=== PATIENT | male | born 1975 | race Caucasian/White ===

== ENCOUNTER 2022-10-01 17:14 | Emergency (ER) | payer OTHER ==
[2022-10-01] MEDS ORDERED: BABY ASPIRIN 81 MG CHEW PO ONE (17:21)
--- NOTE | 2022-10-01 17:21 | ERPHSYRPT ---
- History of Present Illness Time Seen by Provider: 10/01/22 17:20 Historian: patient Exam Limitations: no limitations Physician History: 46-year-old white male patient has a history of hypothyroidism and was driving through town when there was sudden onset of sharp shooting central substernal pain with radiation of the pain down his left arm with associated numbness. He is never had this type of symptom before. He describes the pain as "like placing your tongue on a battery". Generally, he states that he does not feel well. He has no documented coronary artery disease. He has never had this feeling before. He is a former smoker of cigarettes. Timing/Duration: today Quality: sharpness Location: substernal, central Chest Pain Radiation: arm (Left arm) Severity of Pain-Max: mild (To moderate) Severity of Pain-Current: mild Associated Symptoms: denies symptoms Prior Chest Pain/Cardiac Workup: no prior chest pain Nitro Today/Relief: no nitro taken today Aspirin Treatment Today: 81 mg x 4, provided by ED Allergies/Adverse Reactions: Iodinated Contrast Media Allergy (Verified 10/01/22 17:43) Home Medications: Levothyroxine Sodium 100 Mcg [Synthroid 100 Mcg] 100 mcg PO DAILY 10/01/22 [History] Testosterone 100 mg IL UD 10/01/22 [History] Travel Risk - International Travel Have you traveled outside of the country in past 3 weeks: No - Coronavirus Screening Are you exhibiting any of the following symptoms?: No Close contact with a COVID-19 positive Pt in past 14-21 Days: No - Review of Systems Constitutional: No Symptoms Eyes: No Symptoms Ears, Nose, & Throat: No Symptoms Respiratory: No Symptoms Cardiac: Chest Pain Abdominal/Gastrointestinal: No Symptoms Genitourinary Symptoms: No Symptoms Musculoskeletal: No Symptoms Skin: No Symptoms Neurological: No Symptoms Psychological: No Symptoms Endocrine: No Symptoms Hematologic/Lymphatic: No Symptoms Immunological/Allergic: No Symptoms All Other Systems: Reviewed and Negative - Past Medical History Pertinent Past Medical History: Yes - Past Surgical History Past Surgical History: Yes - Nursing Vital Signs Nursing Vital Signs: Initial Vital Signs Temperature 97.9 F 10/01/22 17:23 Pulse Rate 73 10/01/22 17:23 Respiratory Rate 12 10/01/22 17:23 Blood Pressure 151/102 10/01/22 17:23 O2 Sat by Pulse Oximetry 95 10/01/22 17:23 Pain Scale Pain Intensity 0 - Physical Exam General Appearance: no apparent distress, alert, anxiety Eye Exam: PERRL/EOMI, eyes nml inspection Ears, Nose, Throat Exam: normal ENT inspection, moist mucous membranes Neck Exam: normal inspection, non-tender, supple, full range of motion Respiratory Exam: normal breath sounds, chest tenderness, lungs clear, airway intact, No respiratory distress Cardiovascular Exam: regular rate/rhythm, normal heart sounds, normal peripheral pulses Gastrointestinal/Abdomen Exam: soft, normal bowel sounds, No tenderness Rectal Exam: not done Back Exam: normal inspection, normal range of motion, No CVA tenderness, No vertebral tenderness Extremity Exam: normal inspection, normal range of motion, pelvis stable Neurologic Exam: alert, oriented x 3, cooperative, steward/stewardess banquet II-XII nml as tested, normal mood/affect, nml cerebellar function, nml station & gait, sensation nml Skin Exam: normal color, warm, dry Lymphatic Exam: No adenopathy SpO2 Interpretation: normal - Course Nursing assessment & vital signs reviewed: Yes EKG Interpreted by Me: RATE (65), Sinus Rhythm, Left [place] Deviation (Borderline), NORMAL INTERVALS, NORMAL QRS, NORMAL ST-T, Other (No acute ischemic changes on today's twelve-lead EKG. No comparison twelve-lead EKG available.) Ordered Tests: Active Orders 24 hr Category Date Time Status Accredited Farm Manager STAT Care 10/01/22 17:21 Active EKG-ER Only STAT Care 10/01/22 17:21 Active IV Insertion STAT Care 10/01/22 17:21 Active Pulse Oximetry (ED) STAT Care 10/01/22 17:21 Active CHEST 1 VIEW (PORTABLE) Stat Exams 10/01/22 17:21 Taken CBC W DIFF Stat Lab 10/01/22 17:30 Completed CMP Stat Lab 10/01/22 17:30 Completed D-DIMER QUANTITATIVE Stat Lab 10/01/22 17:30 Completed TROPONIN Q4H Lab 10/01/22 17:30 Completed TROPONIN Q4H Lab 10/01/22 21:30 Ordered TROPONIN Q4H Lab 10/02/22 01:30 Ordered Medication Summary Discontinued Medications Generic Name Dose Route Start Last Admin Trade Name Freq PRN Reason Stop Dose Admin Aspirin 324 mg 10/01/22 17:21 10/01/22 17:25 Aspirin 81 Mg Tab.Chew PO 10/01/22 17:22 324 mg STAT ONE Administration Aspirin Confirm 10/01/22 17:23 Aspirin 81 Mg Tab.Chew Administered 10/01/22 17:24 Dose 324 mg .ROUTE .STK-MED ONE Lab/Rad Data: Laboratory Result Diagrams 10/01/22 17:30 10/01/22 17:30 Laboratory Results 10/01/22 10/01/22 10/01/22 Range/Units 17:30 17:30 17:30 WBC (4.0-10.5) x10^3/uL RBC (4.1-5.6) x10^6/uL Hgb (12.5-18.0) g/dL Hct (42-50) % MCV (78-100) fL MCH (26-32) pg MCHC (32-36) g/dL RDW (11.5-14.0) % Plt Count (150-450) x10^3/uL MPV (7.5-11.0) fL Gran % (36.0-66.0) % Immature Gran % (Auto) (0.00-0.4) % Nucleat RBC Rel Count (0.00-0.1) % Eos # (Auto) (0-0.5) x10^3/uL Immature Gran # (Auto) (0.00-0.03) x10^3u/L Absolute Lymphs (auto) (1.0-4.6) x10^3/uL Absolute Monos (auto) (0.0-1.3) x10^3/uL Absolute Nucleated RBC (0.00-0.01) x10^3u/L Lymphocytes % (24.0-44.0) % Monocytes % (0.0-12.0) % Eosinophils % (0.00-5.0) % Basophils % (0.0-0.4) % Absolute Granulocytes (1.4-6.9) x10^3/uL Basophils # (0-0.4) x10^3/uL D-Dimer < 0.19 (0.0-0.50) mg/L Sodium 139 (137-145) mmol/L Potassium 3.8 (3.5-5.1) mmol/L Chloride 102 (98-107) mmol/L Carbon Dioxide 28 (22-30) mmol/L Anion Gap 13.0 (5-15) MEQ/L BUN 17 (9-20) mg/dL Creatinine 1.02 (0.66-1.25) mg/dL Estimated GFR > 60.0 ML/MIN Glucose 103 (74-106) mg/dL Calcium 9.5 (8.4-10.2) mg/dL Total Bilirubin 0.50 (0.2-1.3) mg/dL AST 33 (17-59) U/L ALT 34 (0-50) U/L Alkaline Phosphatase 51 (38-126) U/L Troponin I < 0.012 (0.000-0.034) ng/mL Serum Total Protein 8.0 (6.3-8.2) g/dL Albumin 4.5 (3.5-5.0) g/dL 10/01/22 Range/Units 17:30 WBC 6.5 (4.0-10.5) x10^3/uL RBC 5.02 (4.1-5.6) x10^6/uL Hgb 16.9 (12.5-18.0) g/dL Hct 48.4 (42-50) % MCV 96.4 (78-100) fL MCH 33.7 H (26-32) pg MCHC 34.9 (32-36) g/dL RDW 12.1 (11.5-14.0) % Plt Count 211 (150-450) x10^3/uL MPV 11.2 H (7.5-11.0) fL Gran % 64.2 (36.0-66.0) % Immature Gran % (Auto) 0.2 (0.00-0.4) % Nucleat RBC Rel Count 0.0 (0.00-0.1) % Eos # (Auto) 0.11 (0-0.5) x10^3/uL Immature Gran # (Auto) 0.01 (0.00-0.03) x10^3u/L Absolute Lymphs (auto) 1.63 (1.0-4.6) x10^3/uL Absolute Monos (auto) 0.52 (0.0-1.3) x10^3/uL Absolute Nucleated RBC 0.00 (0.00-0.01) x10^3u/L Lymphocytes % 25.3 (24.0-44.0) % Monocytes % 8.1 (0.0-12.0) % Eosinophils % 1.7 (0.00-5.0) % Basophils % 0.5 (0.0-0.4) % Absolute Granulocytes 4.15 (1.4-6.9) x10^3/uL Basophils # 0.03 (0-0.4) x10^3/uL D-Dimer (0.0-0.50) mg/L Sodium (137-145) mmol/L Potassium (3.5-5.1) mmol/L Chloride (98-107) mmol/L Carbon Dioxide (22-30) mmol/L Anion Gap (5-15) MEQ/L BUN (9-20) mg/dL Creatinine (0.66-1.25) mg/dL Estimated GFR ML/MIN Glucose (74-106) mg/dL Calcium (8.4-10.2) mg/dL Total Bilirubin (0.2-1.3) mg/dL AST (17-59) U/L ALT (0-50) U/L Alkaline Phosphatase (38-126) U/L Troponin I (0.000-0.034) ng/mL Serum Total Protein (6.3-8.2) g/dL Albumin (3.5-5.0) g/dL - Progress Air Movement: good Progress Note: 10/01/22 19:17 This patient's chest x-ray was interpreted by me. There is no evidence of any acute cardiopulmonary process. This patient's medical issue is 1 of moderate complexity. The level of complexity and the work-up performed was based on the review of the patient's past medical history, review of the patient's medication list, review the patient's drug allergy list, history of present illness and physical findings on examination. The work-up in this patient includes placement of intravenous line, CBC, CMP, twelve-lead EKG, D-dimer and troponin level. I reviewed the results of the above-stated work-up including the chest x-ray and there was no evidence of any acute, emergent medical issue today. We did discuss performing a CAT scan of the head and the patient declines at this time. He asked me if I felt it was absolutely necessary and I am not convinced it is absolutely necessary but I did tell him I do not have x-ray vision I could not tell him with 100% certainty the arm numbness was not secondary to an intracranial issue. However, I do think this is less likely and I told him that. He has no headache. He had no visual changes he did not lose speech. His symptoms have resolved. He declines a CT scan of the head at this time. Blood Culture(s) Obtained: No Antibiotics given: No Counseled pt/family regarding: lab results, diagnosis, need for follow-up, rad results Medical Desision Making - Diagnostic Testing Diagnostic test were ordered, analyzed, and reviewed by me: Yes Radiological Interpretation: Interpreted by me - Risk of complications Minimal Risk: Minimal risk of morbidity - Departure Departure Disposition: Home Clinical Impression: Chest pain Condition: Stable Critical Care Time: No Additional Instructions: Call your primary care provider on 10/02/2022 to make arrange for follow-up appointment in the next 3 to 5 days. Continue medication as prescribed.
[2022-10-01] MEDS ORDERED: BABY ASPIRIN 81 MG CHEW ONE (17:23)
[2022-10-01 17:38] LABS: Absolute Neutrophil Ct (ANC) 4.15 x10^3/uL (1.4-6.9); BASOPHIL % 0.5 % (0.0-0.4); Basophil (Absolute #) 0.03 x10^3/uL (0-0.4); Eosinophil % 1.7 % (0.00-5.0); Eosinophil (Absolute #) 0.11 x10^3/uL (0-0.5); Hematocrit 48.4 % (42-50); Hemoglobin 16.9 g/dL (12.5-18.0); IMMATURE GRAN # 0.01 x10^3u/L (0.00-0.03); IMMATURE GRAN % 0.2 % (0.00-0.4); Lymphocyte (Absolute #) 1.63 x10^3/uL (1.0-4.6); Lymphocytes % 25.3 % (24.0-44.0); Mean Cell Volume 96.4 fL (78-100); Mean Corpuscular Hemoglobin 33.7 pg (26-32); Mean Corpuscular Hgb Concent. 34.9 g/dL (32-36); Mean Platelet Volume 11.2 fL (7.5-11.0); Monocyte (Absolute #) 0.52 x10^3/uL (0.0-1.3); Monocytes % 8.1 % (0.0-12.0); Neutrophil % 64.2 % (36.0-66.0); Platelet Count 211 x10^3/uL (150-450); Red Blood Count 5.02 x10^6/uL (4.1-5.6); Red Cell Distribution Width 12.1 % (11.5-14.0); White Blood Count 6.5 x10^3/uL (4.0-10.5)
[2022-10-01 17:51] LABS: ALBUMIN 4.5 g/dL (3.5-5.0); ALKALINE PHOSPHATASE 51 U/L (38-126); BLOOD UREA NITROGEN 17 mg/dL (9-20); CHLORIDE 102 mmol/L (98-107); Calcium 9.5 mg/dL (8.4-10.2); Carbon Dioxide 28 mmol/L (22-30); Creatinine 1 1.02 mg/dL (0.66-1.25); EST GLOMERULAR FILTRATION RATE > 60.0 ML/MIN; Glucose 103 mg/dL (74-106); Potassium 3.8 mmol/L (3.5-5.1); SGOT/AST 33 U/L (17-59); SGPT/ALT 34 U/L (0-50); SODIUM 139 mmol/L (137-145)
[2022-10-01 19:06] VITALS: BP 153/116; PULSE 72; O2SAT 95
--- NOTE | 2022-10-02 08:48 | XRAY ---
Indication: Chest pain. Comparison: None Portable chest demonstrates normal heart and lungs. Bony thorax intact.
== END 2022-10-01 19:34 | disposition home or self-care (01) ==
LOC: ED 17:14
DX: R07.9 Chest pain, unspecified (principal); Z79.899 Other long term (current) drug therapy
CPT/HCPCS: 36000; 36415; 71045; 80053; 84484; 85025; 85379; 93005; 93041; 94760; 99284; A9270-GY